=== PATIENT | male | born 1970 | race African-American/Black ===

== ENCOUNTER → 2020-09-14 | Outpatient (CLI) | payer OTHER ==
--- NOTE | 2020-09-15 04:14 | MR ---
EXAMINATION TYPE: MR brain wo/w con DATE OF EXAM: 09/14/2020 COMPARISON: None HISTORY: Forgetfulness, evaluate for MS CONTRAST: Standard multiplanar, multisequence MRI departmental protocol utilizing 6.5 mL intravenous Gadavist g adolinium contrast. Multiplanar multiecho imaging of the brain was performed without contrast. FINDINGS: There are multiple large areas of increased signal in the periventricular white matter on the T2 and FLAIR images. These measure up to 1.5 cm and total number is less than 20. The brainstem is intact. I see no evidence of cortical infarct. There is no evidence of retro-orbital mass. There is thinning o f the corpus callosum. Sella turcica appears normal. Diffusion images show no evidence of an acute co rtical infarct. The contrast images show no pathologic enhancement. There is normal enhancement of the venous sinuses . IMPRESSION: Numerous white matter nodular foci of increased signal adjacent to the ventricles has appearance cons istent with demyelinating disease. Multifocal lacunar infarcts are in the differential diagnosis.
== END | disposition home or self-care (01) ==
LOC: RADMRIMAIN 20:37
PROVIDERS: ATTEND Psychiatry & Neurology Neurology
DX: R90.82 White matter disease, unspecified (principal); C71.9 Malignant neoplasm of brain, unspecified
CPT/HCPCS: 70553; A9585

== ENCOUNTER 2020-10-11 06:03 | Day surgery (SDC) | payer OTHER ==
[2020-10-10 09:05] VITALS: BMI 21.2
[2020-10-11 06:28] VITALS: TEMP 97.7
[2020-10-11] MEDS ORDERED: LACTATED RINGERS 1,000 ML IV ONE ×4 (06:42→07:51)
[2020-10-11] MEDS ORDERED: MIDAZOLAM 2 MG/2 ML VIAL ONE (07:23)
--- NOTE | 2020-10-11 07:48 | P.PCN ---
Date of Procedure: 10/11/20 Description of Procedure: Preoperative diagnosis: rule out MS Post operative diagnoses: rule out MS Anesthesia local infiltration with lidocaine 1% 2 mL., [moderate sedation with versed 2mg, 20 min sedation time Condition: stable Complication: none. Description of the procedure procedure risk and benefits discussed with the patient and family, consent signed. Patient was taken to the procedure area placed in left lateral position. Local infiltration of the skin and subcutaneous tissue with lidocaine 1%. A 22-gauge Quincke-type needle advanced slowly at L4- 5 interlaminar space.opening pressure was measured at 12 cm of water. CSF was collected. A total of 8 ML of clear cerebrospinal fluid c ollected in 4 tubes, then closing pressure was measured at 8 cm of water. Then, the needle was removed and a Band-Aid applied and patient tolerated the procedure well without any complications.
[2020-10-11 08:00] VITALS: RESP 18
[2020-10-11 08:19] VITALS: BP 129/80; PULSE 62
[2020-10-11] MEDS ORDERED: IV FLUID CONTINUATION 550 ML IV ONE (08:19)
[2020-10-11 12:06] LABS: Glucose,CSF 58 mg/dL (40-70); Total Protein,CSF 45 mg/dL (12-60)
[2020-10-11 15:30] LABS: CSF Tube Number 4
[2020-10-11 15:31] LABS: Appearance,CSF Clear; CSF Tube Volume 1.8; Nucleated Cells, CSF 0 u/L (0-5); Red Blood Cell,CSF 0 u/L (0-10)
[2020-10-11 15:40] LABS: Protein, Total 7.1 g/dL (6.2-8.2)
[2020-10-12 12:37] LABS: Albumin 4.15 g/dL (3.80-4.90); Gamma Globulin 1.14 g/dL (0.70-1.50)
--- NOTE | 2020-10-15 06:59 | CDI ---
Date: 10.15.2020 CDS/Mat Sewer Name: Tika Nguyen Phone: If any questions, call Arely Curry Features Editor at [phone] Patient Name: Juan Sahu Admit Date 10.11.20 Discharge Date: 10.11.20 ATTENTION: The [facility] Coding Staff appreciate your assistance in clarifying documentation. Please respond to the clarification below the line at the bottom and electronically sign. The [facility] Coding staff will review the response and follow-up if needed. Please note: Queries are made part of the Legal Health Record. If you have any questions, please contact the Features Editor. Dear Dr. Suarez In order to code to the greatest specificity and for the greatest reimbursement I need the following information: You have documented rule out MS on your procedure note and H&P/Short form. The Official Guidelines for Coding and Reporting, Section IV.I. state, 'Do not code diagnoses documented as "probable," "suspected," "questionable," "rule out," or "working diagnosis" or other similar terms indicating uncertainty. There are no symptoms mentioned in your documentation. Please document symptoms or a diagnosis. Thank you for your kind consideration. MTDD
[2020-10-15 12:53] LABS: IgG - CSF 7.4 mg/dL (0.0 - 3.4); IgG Synthesis Rate 22.23 mg/day (0.00 - 3.00); IgG/Albumin Index (CSF) 1.61 (0.00 - 0.77)
--- NOTE | 2020-10-23 13:32 | CDI ---
Date: 10.23.2020 CDS/Change Attendant Name: Tika Nguyen Phone: If any questions, call Arely Curry Seafood Technology Specialist at [phone] Patient Name: Juan Sahu Admit Date 10.11.20 Discharge Date: 10.11.20 ATTENTION: The [facility] Coding Staff appreciate your assistance in clarifying documentation. Please respond to the clarification below the line at the bottom and electronically sign. The [facility] Coding staff will review the response and follow-up if needed. Please note: Queries are made part of the Legal Health Record. If you have any questions, please contact the Seafood Technology Specialist. Dear Dr. Suarez In order to code to the greatest specificity and for the greatest reimbursement I need the following information: You have documented rule out MS on your procedure note and H&P/Short form. The Official Guidelines for coding and reporting, section IV.I state. Do not code diagnoses documented as probable, suspected, questionable, rule out, or working diagnosis or other similar term indicating uncertainty. There are no symptoms mentioned in your documentation. Please document symptoms or a diagnosis. Thank you for your kind consideration. am unsure what to put as the diagnosis. T his is the first time I met this patient and neurology referred him for a lumbar puncture to rule out multiple sclerosis. I am not a neurologist but on my exam I did not see symptoms of multiple sclerosis, but I don't know him beyond the day I met him. I don't know what to put as a diagnosis as I have no continuity with the patient and I only did the procedure as referral from neurology [facility]
== END 2020-10-11 08:25 | disposition home or self-care (01) ==
LOC: ORPAIN 06:03
PROVIDERS: ATTEND Anesthesiology
DX: G35 Multiple sclerosis (principal)
CPT/HCPCS: 86255; 84157; 82945; 82040; 82042; 82784; 83916; 89050; 82438; 84165; 62270; J2250; 99152

== ENCOUNTER 2020-10-19 17:57 | Emergency (ER) | payer OTHER ==
[2020-10-19 18:17] VITALS: RESP 18; TEMP 98.7
--- NOTE | 2020-10-19 19:03 | ED ---
General Adult HPI - General Chief complaint: Dizziness Stated complaint: dizziness Time Seen by Provider: 10/19/20 18:48 Source: patient Mode of arrival: ambulatory Limitations: no limitations - History of Present Illness Initial comments: Dictation was produced using [employer] dictation software. please excuse any grammatical, word or spelling errors. This patient was cared for during a federal and state declared state of emergency secondary to Covid 19 Chief Complaint: 50-year-old male with past medical history of hypertension presents with episode of dizziness. History of Present Illness: Is a 50-year-old male is past medical history of hypertension. He presents to the emergency department for episode of dizziness. 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 Reports that at work he had several minutes of dizziness. States that he didn't break out into a sweat. Patient states that it occurred several hours prior to arrival. Since that he's been feeling at baseline. He went home and told his about it and she urged him to come to the emergency department to be evaluated. Patient feels well he is tolerating oral at home. He has no complaints currently. The ROS documented in this emergency department record has been reviewed and confirmed by me. Those systems with pertinent positive or negative responses have been documented in the HPI. All other systems are other negative and/or noncontributory. PHYSICAL EXAM: General Impression: Alert and oriented x3, not in acute distress HEENT: Normocephalic atraumatic, extra-ocular movements intact, pupils equal and reactive to light bilaterally, mucous membranes moist. Cardiovascular: Heart regular rate and rhythm Chest: Able to complete full sentences, no retractions, no tachypnea Abdomen: abdomen soft, non-tender, non-distended, no organomegaly Musculoskeletal: Pulses present and equal in all extremities, no peripheral edema Motor: no focal deficits noted Neurological: CN II-XII grossly intact, no focal motor or sensory deficits noted Skin: Intact with no visualized rashes Psych: Normal affect and mood ED course: 50-year-old male presents for medical evaluation after episode of dizziness earlier today. Vital signs upon arrival are within acceptable limits EKG is unremarkable. Laboratory evaluation is is within acceptable limits. However there is slight elevation in renal markers. Patient told to increase his hydration follow up with primary care physician. Patient clear for discharge clear for discharge. EKG interpretation: Ventricular rate 64, normal sinus rhythm,. 170, QRS 90, QTC 425. No GA prolongation, no QTC prolongation, no ST or T-wave changes noted. Benign early repolarization. Overall this EKG is unremarkable. - Related Data Home Medications Medication Instructions Recorded Confirmed Labetalol [Trandate] 100 mg PO BID 10/10/20 10/11/20 Multivitamins, Thera [Multivitamin 1 tab PO DAILY 10/10/20 10/11/20 (formulary)] amLODIPine [Norvasc] 10 mg PO DAILY 10/10/20 10/11/20 Allergies Allergy/AdvReac Type Severity Reaction Status Date / Time No Known Allergies Allergy Verified 10/19/20 18:17 Review of Systems ROS Statement: Those systems with pertinent positive or pertinent negative responses have been documented in the HPI. ROS Other: All systems not noted in ROS Statement are negative. Past Medical History Past Medical History: CVA/TIA, Hypertension Additional Past Medical History / Comment(s): POSSIBLE TIA'S PER XRAY History of Any Multi-Drug Resistant Organisms: None Reported Past Surgical History: No Surgical Hx Reported Past Anesthesia/Blood Transfusion Reactions: No Reported Reaction Additional Past Anesthesia/Blood Transfusion Reaction / Comment(s): NO PREVIOUS ANESTHESIA Past Psychological History: No Psychological Hx Reported Smoking Status: Never smoker Past Alcohol Use History: Rare Past Drug Use History: None Reported - Past Family History Mother Family Medical History: No Reported History General Exam Limitations: no limitations Course Vital Signs 10/19/20 10/19/20 10/19/20 18:12 18:50 19:45 Temperature 98.7 F Pulse Rate 76 63 63 Respiratory 18 18 18 Rate Blood Pressure 137/74 128/95 131/90 O2 Sat by Pulse 100 99 100 Oximetry Medical Decision Making - Lab Data Result diagrams: 10/19/20 19:02 10/19/20 19:02 Lab Results 10/19/20 10/19/20 Range/Units 19:02 19:02 WBC 7.5 (3.8-10.6) k/uL RBC 4.82 (4.30-5.90) m/uL Hgb 13.4 (13.0-17.5) gm/dL Hct 41.4 (39.0-53.0) % MCV 86.0 (80.0-100.0) fL MCH 27.7 (25.0-35.0) pg MCHC 32.2 (31.0-37.0) g/dL RDW 13.4 (11.5-15.5) % Plt Count 292 (150-450) k/uL MPV 6.5 Neutrophils % 58 % Lymphocytes % 29 % Monocytes % 7 % Eosinophils % 3 % Basophils % 1 % Neutrophils # 4.3 (1.3-7.7) k/uL Lymphocytes # 2.2 (1.0-4.8) k/uL Monocytes # 0.5 (0-1.0) k/uL Eosinophils # 0.2 (0-0.7) k/uL Basophils # 0.0 (0-0.2) k/uL Sodium 142 (137-145) mmol/L Potassium 4.1 (3.5-5.1) mmol/L Chloride 109 H (98-107) mmol/L Carbon Dioxide 27 (22-30) mmol/L Anion Gap 6 mmol/L BUN 22 H (9-20) mg/dL Creatinine 1.36 H (0.66-1.25) mg/dL Est GFR (CKD-EPI)AfAm 69 (>60 ml/min/1.73 sqM) Est GFR (CKD-EPI)NonAf 60 (>60 ml/min/1.73 sqM) Glucose 92 (74-99) mg/dL Calcium 9.6 (8.4-10.2) mg/dL Disposition Clinical Impression: Dizziness Disposition: HOME SELF-CARE Condition: Good Instructions (If sedation given, give patient instructions): Dizziness (ED) Is patient prescribed a controlled substance at d/c from ED?: No Referrals: Gatito Conway MD [Primary Care Provider] - 1-2 days Time of Disposition: 19:49
[2020-10-19 19:12] VITALS: PULSE 63
[2020-10-19 19:30] LABS: Basophils % (A) 1 %; Calcium 9.6 mg/dL (8.4-10.2); Eosinophils # (A) 0.2 k/uL (0-0.7); Eosinophils % (A) 3 %; HCT 41.4 % (39.0-53.0); HGB 13.4 gm/dL (13.0-17.5); Lymphocytes # (A) 2.2 k/uL (1.0-4.8); Lymphocytes % (A) 29 %; MCH 27.7 pg (25.0-35.0); MCHC 32.2 g/dL (31.0-37.0); Mean Platelet Volume 6.5; Monocytes # (A) 0.5 k/uL (0-1.0); Monocytes % (A) 7 %; Neutrophils # (A) 4.3 k/uL (1.3-7.7); Neutrophils % (A) 58 %; Platelet Count 292 k/uL (150-450); Potassium 4.1 mmol/L (3.5-5.1); RBC 4.82 m/uL (4.30-5.90); RDW 13.4 % (11.5-15.5); WBC 7.5 k/uL (3.8-10.6)
[2020-10-19 19:47] VITALS: BP 131/90
== END 2020-10-19 20:21 | disposition home or self-care (01) ==
LOC: EC 17:57
DX: R42 Dizziness and giddiness (principal); R79.89 Other specified abnormal findings of blood chemistry; I10 Essential (primary) hypertension; Z79.899 Other long term (current) drug therapy; Z86.73 Personal history of transient ischemic attack (TIA), and cerebral infarction without residual deficits
CPT/HCPCS: 36415; 80048; 85025; 93005; 99284

== ENCOUNTER → 2020-10-23 | Outpatient (CLI) | payer OTHER ==
[2020-10-23 17:12] LABS: Basophils # (A) 0.1 k/uL (0-0.2); Basophils % (A) 1 %; Eosinophils # (A) 0.3 k/uL (0-0.7); Eosinophils % (A) 3 %; HCT 41.7 % (39.0-53.0); HGB 13.4 gm/dL (13.0-17.5); Lymphocytes # (A) 2.2 k/uL (1.0-4.8); Lymphocytes % (A) 25 %; MCH 28.7 pg (25.0-35.0); MCHC 32.1 g/dL (31.0-37.0); MCV 89.5 fL (80.0-100.0); Mean Platelet Volume 6.4; Monocytes # (A) 0.5 k/uL (0-1.0); Monocytes % (A) 5 %; Neutrophils # (A) 5.5 k/uL (1.3-7.7); Neutrophils % (A) 64 %; Platelet Count 288 k/uL (150-450); RBC 4.66 m/uL (4.30-5.90); RDW 13.3 % (11.5-15.5); WBC 8.6 k/uL (3.8-10.6)
[2020-10-24 02:49] LABS: ALT 20 U/L (10-49); AST 28 U/L (14-35)
== END | disposition home or self-care (01) ==
LOC: LABWHC1 16:07
PROVIDERS: ATTEND Psychiatry & Neurology Neurology
DX: G35 Multiple sclerosis (principal)
CPT/HCPCS: 36415; 84450; 84460; 85025

== ENCOUNTER → 2020-12-14 | Outpatient (CLI) | payer OTHER ==
--- NOTE | 2020-12-15 07:43 | XR ---
EXAMINATION TYPE: XR ankle limited RT DATE OF EXAM: 12/14/2020 COMPARISON: NONE HISTORY: Pain TECHNIQUE: Frontal, lateral images of the right ankle are obtained. COMPARISON: None. FINDINGS: There is no acute fracture/dislocation evident. The joint spaces appear within normal locke its. The overlying soft tissue appears unremarkable. IMPRESSION: There is no acute fracture or dislocation seen.
== END | disposition home or self-care (01) ==
LOC: RADXRMAIN 16:38
PROVIDERS: ATTEND Family Medicine
DX: M76.61 Achilles tendinitis, right leg (principal)

== ENCOUNTER → 2021-07-18 | Outpatient (CLI) | payer SELFPAY ==
[2021-07-18 23:44] LABS: Basophils # (A) 0.05 X 10*3/uL (0.00-0.10); Basophils % (A) 0.7 %; Eosinophils # (A) 0.16 X 10*3/uL (0.04-0.35); Eosinophils % (A) 2.1 %; HCT 40.6 % (39.6-50.0); HGB 13.1 g/dL (13.0-17.0); Lymphocytes # (A) 1.42 X 10*3/uL (0.90-5.00); Lymphocytes % (A) 18.9 %; MCH 28.2 pg (27.0-32.0); MCHC 32.3 g/dL (32.0-37.0); MCV 87.3 fL (80.0-97.0); Mean Platelet Volume 10.6 fL (9.5-12.2); Monocytes # (A) 0.68 X 10*3/uL (0.20-1.00); Platelet Count 308 X 10*3/uL (140-440); RBC 4.65 X 10*6/uL (4.40-5.60); RDW 13.2 % (11.5-14.5); WBC 7.53 X 10*3/uL (4.50-10.00)
[2021-07-19 07:22] LABS: ALT 22 U/L (10-49); AST 34 U/L (14-35)
== END | disposition home or self-care (01) ==
LOC: LABWHC1 16:10
PROVIDERS: ATTEND Psychiatry & Neurology Neurology
DX: G35 Multiple sclerosis (principal)
CPT/HCPCS: 36415; 84450; 84460; 85025

== ENCOUNTER → 2022-01-06 | Outpatient (CLI) | payer OTHER ==
--- NOTE | 2022-01-06 21:30 | US ---
EXAMINATION TYPE: US kidneys/renal and bladder DATE OF EXAM: 01/06/2022 COMPARISON: NONE CLINICAL HISTORY: N18.2 CKD STAGE II. EXAM MEASUREMENTS: Right Kidney: 9.9 x 3.6 x 5.0 cm Left Kidney: 10.1 x 4.2 x 4.9 cm Right Kidney: No hydronephrosis or masses seen Left Kidney: Portion of mid and entire inferior pole obscured by bowel gas, portions visualized appea r wnl Bladder: wnl Bilateral Jets seen: No There is no evidence for hydronephrosis at this point in time. There is increased cortical echogenici ty bilaterally. No masses are identified on images saved. The urinary bladder is satisfactorily dis tended. Bilateral ureteral jets are and not seen. IMPRESSION: No hydronephrosis seen bilaterally.
== END | disposition home or self-care (01) ==
LOC: RADUSWWP 16:05
PROVIDERS: ATTEND Internal Medicine
DX: N18.2 Chronic kidney disease, stage 2 (mild) (principal)
CPT/HCPCS: 76770

== ENCOUNTER 2022-04-30 06:18 | Day surgery (SDC) | payer OTHER ==
[~2022-04-30 06:18] MED LIST: LACTATED RINGERS 1,000 ML IV SCH; LIDOCAINE 1% (10MG/ML) FOR IV START INTRADERMA PRN
[2022-04-30 07:09] VITALS: TEMP 97.3
[2022-04-30] MEDS ORDERED: PROPOFOL 10 MG/ML 20 ML VIAL IV ONE (07:29)
[2022-04-30] MEDS ORDERED: MIDAZOLAM 2 MG/2 ML VIAL ONE (07:29)
[2022-04-30] MEDS ORDERED: fentaNYL (PF) 50 MCG/ML 2 ML AMP ONE (07:29)
[2022-04-30] MEDS ORDERED: LIDOCAINE 2% INJ 20 MG/ML (2 ML VIAL) ONE (07:29)
--- NOTE | 2022-04-30 07:46 | P.PCN ---
Date of Procedure: 04/30/22 Procedure(s) Performed: Brief history: Patient is a pleasant 51-year-old -[place] male scheduled for an elective upper endoscopy as well as colonoscopy as a part of evaluation of iron deficiency anemia. He denies any GI symptoms. Procedure performed: Esophagogastroduodenoscopy with biopsy Colonoscopy Preoperative diagnosis: Iron deficiency anemia Anesthesia: [facility] Procedure: After informed consent was obtained from the patient was brought into the endoscopy unit and IV sedation was administered by anesthesia under continuous monitoring. Initially upper endoscopy was done. The Olympus GF 160 video endoscope was inserted inserted into the mouth and esophagus intubated without any difficulty and was gradually advanced into the stomach and duodenum and carefully examined. The bulb and second part of the duodenum appeared normal. Biopsies were done from the duodenum to rule out celiac disease. The scope was then withdrawn into the stomach adequately insufflated with air and upon careful examination the antrum had mild gastritis and biopsies were done from this area. The body, cardia and fundus appeared normal. The scope was then withdrawn into the esophagus. The GE junction was located at 40 cm to the incisors. mall hiatal hernia noted. It appeared regular with no erythema erosions or ulcerations. Rest of the esophagus appeared normal. Patient tolerated the procedure well. At this time the patient continued to remain sedation. Initial digital rectal examination was normal. Olympus CF 160 video colonoscope was then inserted into the rectum and gradually advanced to the cecum without any difficulty. Careful examination was performed as the scope was gradually being withdrawn. The prep was excellent. The cecum, ascending colon, transverse colon, descending colon, sigmoid colon and rectum appeared normal. Retroflexion was performed in the rectum and no lesions were noted. Patient tolerated the procedure well. Impression: 1. Upper endoscopy revealed mild antral gastritis and small hiatal hernia 2. Colonoscopy was within normal limits with no evidence of colorectal neoplasia Recommendations: Findings of this examination were discussed with the patient as well as his family. He was advised to follow with the biopsy results. Recommend repeat screening colonoscopy in 10 years.
[2022-04-30 07:53] VITALS: RESP 16
[2022-04-30 08:09] VITALS: BP 117/75; PULSE 63
== END 2022-04-30 08:23 | disposition home or self-care (01) ==
LOC: ORWHC2ENDO 06:18
PROVIDERS: ATTEND Internal Medicine Gastroenterology
DX: K29.50 Unspecified chronic gastritis without bleeding (principal); K44.9 Diaphragmatic hernia without obstruction or gangrene; D50.9 Iron deficiency anemia, unspecified; G35 Multiple sclerosis; Z86.73 Personal history of transient ischemic attack (TIA), and cerebral infarction without residual deficits; Z79.899 Other long term (current) drug therapy
CPT/HCPCS: 88305; 88313; 45378; 43239; J2250; J3010; J2704; J2001

== ENCOUNTER → 2025-02-27 | Outpatient (CLI) | payer OTHER ==
[2025-02-27 14:59] LABS: Appearance,Urine Clear (Clear); Bilirubin,Urine Negative (Negative); Blood,Urine Negative (Negative); Color,Urine Light Yellow; Glucose,Urine (UA) 3+ (Negative); Ketones,Urine Negative (Negative); Leukocyte Esterase,Urine Negative (Negative); Mucus,Urine Rare /hpf; Nitrite,Urine Negative (Negative); PH, Urine 5.5 (5.0-8.0); Protein,Urine 1+ (Negative); RBC,Urine <1 /hpf (0-5); Specific Gravity,Urine 1.018 (1.001-1.035); Urobilinogen,Urine <2.0 mg/dL (<2.0); WBC,Urine <1 /hpf (0-5)
[2025-02-27 15:44] LABS: Basophils # (A) 0.05 X 10*3/uL (0.00-0.10); Basophils % (A) 1.2 %; Eosinophils % (A) 2.5 %; HCT 45.4 % (39.6-50.0); HGB 14.7 g/dL (13.0-17.0); Lymphocytes # (A) 1.32 X 10*3/uL (0.90-5.00); Lymphocytes % (A) 32.6 %; MCH 28.1 pg (27.0-32.0); MCHC 32.4 g/dL (32.0-37.0); MCV 86.6 FL (80.0-97.0); Mean Platelet Volume 9.5 FL (9.5-12.2); Monocytes # (A) 0.46 X 10*3/uL (0.20-1.00); Monocytes % (A) 11.4 %; NRBC Per 100 WBC 0 X 10*3/uL (0.00-0.01); Neutrophils # (A) 2.11 X 10*3/uL (1.80-7.70); Neutrophils % (A) 52.1 %; Platelet Count 297 X 10*3/uL (140-440); RBC 5.24 X 10*6/uL (4.40-5.60); RDW 12.8 % (11.5-14.5); WBC 4.05 X 10*3/uL (4.50-10.00)
[2025-02-27 16:26] LABS: Magnesium 1.8 mg/dL (1.5-2.4)
[2025-02-27 16:27] LABS: Phosphorus 2.9 mg/dL (2.4-5.1); Uric Acid 6.9 mg/dL (3.7-8.7)
[2025-02-27 16:38] LABS: ALT 15 U/L (10-49); AST 21 U/L (14-35); Albumin 4.3 g/dL (3.8-4.9); Albumin/Globulin Ratio 1.72 Ratio (1.60-3.17); Alkaline Phosphatase 79 U/L (41-126); BUN/Creat Ratio 11.31 Ratio (12.00-20.00); Blood Urea Nitrogen 14.7 mg/dL (9.0-27.0); Calcium 9.6 mg/dL (8.7-10.3); Carbon Dioxide 27.9 mmol/L (21.6-31.8); Chloride 108 mmol/L (96-109); Globulin 2.5 g/dL (1.6-3.3); Glucose 49 mg/dL (70-110); Potassium 4.2 mmol/L (3.5-5.5); Sodium 145 mmol/L (135-145); Total Bilirubin 0.4 mg/dL (0.3-1.2); Total Protein 6.8 g/dL (6.2-8.2)
== END | disposition home or self-care (01) ==
LOC: LABWHC1 12:38
PROVIDERS: ATTEND Nurse Practitioner Family
DX: N18.2 Chronic kidney disease, stage 2 (mild) (principal); D63.1 Anemia in chronic kidney disease; N39.0 Urinary tract infection, site not specified; R80.9 Proteinuria, unspecified; N25.81 Secondary hyperparathyroidism of renal origin; E55.9 Vitamin D deficiency, unspecified; M10.9 Gout, unspecified
CPT/HCPCS: 36415; 80053; 81001; 82043; 82306; 82570; 83735; 83970; 84100; 84550; 85025

== ENCOUNTER → 2025-03-27 | Outpatient (CLI) | payer OTHER ==
--- NOTE | 2025-03-27 16:06 | US ---
EXAMINATION TYPE: US kidneys/renal and bladder DATE OF EXAM: 03/27/2025 COMPARISON: 12/21/24 renal ultrasound CLINICAL INDICATION: Male, 54 years old with history of N18.31 CKD STAGE 3A; CKD. Follow up on prior rt kidney TECHNIQUE: Grayscale imaging of the bilateral kidneys and urinary bladder: FINDINGS: EXAM MEASUREMENTS: Right Kidney: 9.2 x 5.2 x 3.6 cm Left Kidney: 10.1 x 4.7 x 5.0 cm Right Kidney: Prominent area in mid pole. Possible Column of Musa vs duplex collecting system Left Kidney: Prominent area mid pole. Possible Column of Musa vs duplex collecting system. Bladder: wnl Bilateral Jets seen: Yes. There did appear to be 2 jets on both the left and right side (4 total). There is no evidence for hydronephrosis at this point in time. No nephrolithiasis is seen. No juan diego s are identified. The urinary bladder is anechoic. IMPRESSION: No hydronephrosis seen bilaterally. Concerning renal masses are identified. Technologist suspects possible complete duplication of the collecting systems bilaterally. This can be confirmed w ith contrast-enhanced CT evaluation if desired. [facility], , 03/27/2025 4:04 PM
== END | disposition home or self-care (01) ==
LOC: RADUSWWP 15:22
PROVIDERS: ATTEND Family Medicine
DX: N18.31 Chronic kidney disease, stage 3a (principal)
CPT/HCPCS: 76770

== ENCOUNTER → 2025-06-02 | Outpatient (CLI) | payer OTHER ==
[2025-06-03 02:03] LABS: HCT 39.9 % (39.6-50.0); HGB 12.8 g/dL (13.0-17.0); MCH 27.5 pg (27.0-32.0); MCHC 32.1 g/dL (32.0-37.0); MCV 85.8 FL (80.0-97.0); NRBC Per 100 WBC 0 X 10*3/uL (0.00-0.01); Platelet Count 280 X 10*3/uL (140-440); RBC 4.65 X 10*6/uL (4.40-5.60); RDW 13.3 % (11.5-14.5); WBC 4.21 X 10*3/uL (4.50-10.00)
[2025-06-03 02:18] LABS: Bilirubin,Urine Negative (Negative); Blood,Urine Negative (Negative); Color,Urine Yellow (Yellow); Ketones,Urine Negative (Negative); Nitrite,Urine Negative (Negative); PH, Urine 6.0; Specific Gravity,Urine 1.019 (1.001-1.030); Urobilinogen,Urine 0.2 E.U./DL
[2025-06-03 03:01] LABS: BUN/Creat Ratio 11.15 Ratio (12.00-20.00); Blood Urea Nitrogen 14.5 mg/dL (9.0-27.0); Glucose 95 mg/dL (70-110); Iron 36 UG/DL (65-175); Magnesium 1.8 mg/dL (1.5-2.4); Total Iron Binding Capacity 312 UG/DL (228-460); Uric Acid 6.5 mg/dL (3.7-8.7)
[2025-06-03 03:02] LABS: ALT 21 U/L (10-49); AST 27 U/L (14-35); Albumin 4.4 g/dL (3.8-4.9); Albumin/Globulin Ratio 2.10 Ratio (1.60-3.17); Alkaline Phosphatase 65 U/L (41-126); Anion Gap 13.00 mmol/L (4.00-12.00); Calcium 9.4 mg/dL (8.7-10.3); Carbon Dioxide 23.0 mmol/L (21.6-31.8); Chloride 107 mmol/L (96-109); Ferritin 223.0 ng/mL (22.0-322.0); Globulin 2.1 g/dL (1.6-3.3); Potassium 4.6 mmol/L (3.5-5.5); Sodium 143 mmol/L (135-145); Total Protein 6.5 g/dL (6.2-8.2)
== END | disposition home or self-care (01) ==
LOC: LABWHC1 15:36
PROVIDERS: ATTEND Internal Medicine
DX: N18.2 Chronic kidney disease, stage 2 (mild) (principal); D63.1 Anemia in chronic kidney disease; E55.9 Vitamin D deficiency, unspecified; N39.0 Urinary tract infection, site not specified; N25.81 Secondary hyperparathyroidism of renal origin; M10.9 Gout, unspecified; R80.9 Proteinuria, unspecified
CPT/HCPCS: 36415; 80053; 81003; 82043; 82306; 82570; 82728; 83540; 83550; 83735; 83970; 84100; 84550; 85027